=== PATIENT | male | born 1995 | race Two or more races ===

== ENCOUNTER 2025-03-21 08:06 | Emergency (ER) | payer OTHER ==
[~2025-03-21] VITALS: Ht 185.4 cm; Wt 95.3 kg
[2025-03-21 09:14] LABS: BASO % 0.4 % (0.1-1.2); EOS # 0.30 (0.04-0.54); EOS % 3.1 % (0.7-7.0); LYMPH # 2.07 (1.18-3.74); LYMPH % 21.3 % (19.3-53.1); MEAN PLATELET VOLUME 9.40 fl (9.4-12.4); MONO # 0.81 (0.24-0.82); MONO % 8.4 % (4.7-12.5); NEUT # 6.42 (1.56-6.13); NEUT % 66.2 % (34.0-71.1); RED CELL DISTRIBUTION WIDTH 11.4 % (11.6-14.4)
[2025-03-21 09:31] LABS: BUN CREA RATIO 14.0 (7.0-25.0); CREATININE SERUM 1.28 mg/dL (0.70-1.30); GFR 66.92; GLUCOSE FASTING 102.0 mg/dL (65-100); OSMOLALITY SERUM 285.0 MOSM/KG (275-295)
== END 2025-03-21 10:06 | disposition home or self-care (01) ==
LOC: ER 08:06
PROVIDERS: General Practice
DX: M25.561 Pain in right knee (principal); W01.0XXA Fall on same level from slipping, tripping and stumbling without subsequent striking against object, initial encounter; Y93.89 Activity, other specified; Y92.018 Other place in single-family (private) house as the place of occurrence of the external cause